=== PATIENT | male | born 1995 | race Caucasian/White ===

== ENCOUNTER 2020-07-22 18:04 | Emergency (ER) | payer MEDICAID ==
--- NOTE | 2020-07-22 18:50 | EDM.PDOC ---
ED HPI GENERAL MEDICAL PROBLEM - General Chief Complaint: General Stated Complaint: PUKING UP Time Seen by Provider: 07/22/20 18:42 Source of Information: Reports: Patient, Family, RN Notes Reviewed History Limitations: Reports: No Limitations - History of Present Illness INITIAL COMMENTS - FREE TEXT/NARRATIVE: 25-year-old gentleman presents emergency department day complaint of sinus congestion states been going on for 2 months the thing that brought him to the emergency department today as he just felt very weak he has not had any fevers the congestion seems to be more present in the morning no shortness of breath or chest pain, 1 bout of emesis today - Related Data Allergies Allergy/AdvReac Type Severity Reaction Status Date / Time latex Allergy Itching Verified 07/22/20 18:26 Home Meds: Home Meds NK [No Known Home Meds] 07/22/20 [History] Past Medical History - Past Health History Medical/Surgical History: Denies Medical/Surgical History Social & Family History - Tobacco Use Tobacco Use Status *Q: Current Some Day Tobacco User Years of Tobacco use: 1 Packs/Tins Daily: 0.2 - Caffeine Use Caffeine Use: Reports: Soda - Recreational Drug Use Recreational Drug Type: Reports: Marijuana/Hashish ED ROS GENERAL - Review of Systems Review Of Systems: See Below Constitutional: Reports: Weakness, Fatigue. Denies: Fever, Chills HEENT: Reports: No Symptoms Respiratory: Reports: No Symptoms Cardiovascular: Reports: No Symptoms GI/Abdominal: Reports: Nausea, Vomiting. Denies: Abdominal Pain : Reports: No Symptoms ED EXAM, GENERAL - Physical Exam Exam: See Below Exam Limited By: No Limitations General Appearance: Alert, WD/WN, No Apparent Distress Eye Exam: Bilateral Eye: Normal Inspection Ears: Normal External Exam, Normal Canal, Hearing Grossly Normal, Normal TMs Nose: Normal Inspection, Normal Mucosa, No Blood Throat/Mouth: Normal Inspection, Normal Lips, Normal Teeth, Normal Gums, Normal Oropharynx, Normal Voice, No Airway Compromise Head: Atraumatic, Normocephalic Neck: Normal Inspection, Supple, Non-Tender, Full Range of Motion Respiratory/Chest: No Respiratory Distress, Lungs Clear, Normal Breath Sounds, No Accessory Muscle Use, Chest Non-Tender Cardiovascular: Regular Rate, Rhythm, No Murmur GI/Abdominal: Soft, Non-Tender Course - Vital Signs Last Recorded V/S: Last Vital Signs Temp 97.8 F 06/05/21 18:26 Pulse 67 07/22/20 18:26 Resp 16 07/22/20 18:26 BP 147/63 H 07/22/20 18:26 Pulse Ox 96 07/22/20 18:26 - Orders/Labs/Meds Labs: Laboratory Tests 07/22/20 07/22/20 07/22/20 Range/Units 19:08 19:08 19:15 WBC 12.1 H (4.5-11.0) K/uL RBC 5.09 (4.30-5.90) M/uL Hgb 14.8 (12.0-15.0) g/dL Hct 43.8 (40.0-54.0) % MCV 86 (80-98) fL MCH 29 (27-31) pg MCHC 34 (32-36) % Plt Count 326 (150-400) K/uL Neut % (Auto) 75.4 H (36-66) % Lymph % (Auto) 19.2 L (24-44) % [place] % (Auto) 5.1 (2-6) % Eos % (Auto) 0.1 L (2-4) % Baso % (Auto) 0.2 (0-1) % Sodium 142 (140-148) mmol/L Potassium 3.8 (3.6-5.2) mmol/L Chloride 105 (100-108) mmol/L Carbon Dioxide 25 (21-32) mmol/L Anion Gap 12.4 (5.0-14.0) mmol/L BUN 14 (7-18) mg/dL Creatinine 0.9 (0.8-1.3) mg/dL Est Cr Clr Drug Dosing 134.80 mL/min Estimated GFR (MDRD) > 60 (>60) Glucose 79 (74-106) mg/dL Calcium 9.2 (8.5-10.1) mg/dL SARS CoV-2 RNA Rapid DARCIE Negative Departure - Departure Time of Disposition: 20:08 Disposition: Home, Self-Care 01 Condition: Fair Clinical Impression: Sinus congestion - Discharge Information Referrals: PCP,None [Primary Care Provider] - Forms: ED Department Discharge Additional Instructions: Try the [id number] antihistamines, pseudoephedrine is another choice, also consider the [place] pot, please followup with your primary care provider in 3-5 days if not better, please call return to the emergency department with worsening of symptoms. Sepsis Event Note (ED) - Evaluation Sepsis Screening Result: No Definite Risk - Focused Exam Vital Signs: Vital Signs Temp Pulse Resp BP Pulse Ox 07/22/20 18:26 97.8 F 67 16 147/63 H 96 - Assessment/Plan Plan: Assessment Acuity = acute Site and laterality = sinusitis Etiology = unknown suspicious for allergen Manifestations = sinus congestion morning Location of injury = Home Lab values = WBC elevated 12.1 consistent leukocytosis, remainder of CBC unremarkable, BMP unremarkable Covid was negative Plan I did review lab work with him talked about options he is going to try over -the-counter antihistamines as well as pseudoephedrine also discussed the possibility of a [place] pot and consultation with ear nose and throat This note was dictated using [employer] voice recognition software please call with any questions on syntax or grammar.
== END 2020-07-22 20:18 | disposition home or self-care (01) ==
LOC: JP.ED 18:04
DX: J34.89 Other specified disorders of nose and nasal sinuses (principal); Z91.040 Latex allergy status; Z20.822 Contact with and (suspected) exposure to COVID-19; Z72.0 Tobacco use
CPT/HCPCS: 36415; 80048; 85025; 99283; U0002